=== PATIENT | male | born 1985 | race Caucasian/White ===

== ENCOUNTER 2017-06-26 14:02 | Emergency (ER) | payer BC ==
[2017-06-26] MEDS ORDERED: FAMOTIDINE INJ/PF 20 MG/2 ML SDV IV ONE (14:14)
[2017-06-26] MEDS ORDERED: METHYLPREDNISOLONE INJ 125 MG/2 ML SDV IV ONE (14:14)
[2017-06-26] MEDS ORDERED: EPINEPHRINE INJ/PF 1 MG/1 ML AMPULE SUBCUT ONE (14:14)
[2017-06-26] MEDS ORDERED: NORMAL SALINE 1000 ML 1,000 ML IV PRN (14:14)
[2017-06-26] MEDS ORDERED: DIPHENHYDRAMINE HCL 50 MG/ML VIAL IV ONE (14:14)
--- NOTE | 2017-06-26 14:16 | ER Document Report ---
ED Medical Screen (RME) - General Chief Complaint: Bee Sting Stated Complaint: POSSIBLE BEE STING Time Seen by Provider: 06/26/17 14:14 Mode of Arrival: Ambulatory Information source: Patient TRAVEL OUTSIDE OF THE [place] IN LAST 30 DAYS: No - HPI Patient complains to provider of: bee sting, allergic reaction Onset: Other - 1 hour T[facility] Notes: 06/26/17 14:15 Patient is a 31-year-old male presenting to the emergency room complaining of bee sting to the right forearm that occurred approximately 1 hour prior to arrival, he has erythematous and swelling to the right forearm, also has diffuse erythema and urticarial rash and swelling to the face upper with eyelid and lip swelling, sensation of chest and throat tightness, diffuse itchy sensation - Related Data Allergies/Adverse Reactions: No Known Allergies Allergy (Verified 06/26/17 14:07) Past Medical History Pulmonary Medical History: Reports: Hx Asthma - childhood Neurological Medical History: Reports: Hx Migraine Renal/ Medical History: Denies: Hx Peritoneal Dialysis Past Surgical History: Reports: Hx Inguinal Hernia - Immunizations Hx Diphtheria, Pertussis, Tetanus Vaccination: Yes Physical Exam - Vital signs Vitals: Temp Pulse Resp BP Pulse Ox 97.8 F 73 18 123/77 97 06/26/17 14:07 06/26/17 14:07 06/26/17 14:07 06/26/17 14:07 06/26/17 14:07 Course - Vital Signs Vital signs: Temp Pulse Resp BP Pulse Ox 97.8 F 73 18 123/77 97 06/26/17 14:07 06/26/17 14:07 06/26/17 14:07 06/26/17 14:07 06/26/17 14:07
[2017-06-26] MEDS ORDERED: MAG HYDROX/AL HYDROX/SIMETH SUSP 30 ML UDCUP PO ONE (15:12)
[2017-06-26] MEDS ORDERED: LIDOCAINE 2% VISCOUS SOLN 20 ML UDCUP PO ONE (15:12)
--- NOTE | 2017-06-26 15:14 | ER Document Report ---
ED Allergic Reaction - General Mode of Arrival: Ambulatory Information source: Patient TRAVEL OUTSIDE OF THE [place] IN LAST 30 DAYS: No - HPI Onset: Other - Refer to HPI Notes Identified cause: Yes - wasp sting Swelling: Lip(s) Similar symptoms previously: No Recently seen / treated by doctor: No - General Chief Complaint: Bee Sting Stated Complaint: POSSIBLE BEE STING Time Seen by Provider: 06/26/17 14:14 Notes: Patient is a 31 year old male presenting to the emergency department after being stung by a wasp. Patient states he was stung in his right forearm. Patient states right after he had some slight swelling to his arm and itchy sensations. Patient also states within 15 minutes he had facial swelling including eyelid and lip swelling, tightness in his chest and throat, urticaria , and a burning sensation all over including to his genitourinary region. Patient states he took a shower to try to help with his symptoms with no relief. Patient was given epinephrine in triage which relieved most of his symptoms. During exam patient only has some slight swelling to his right forearm no urticaria present. Patient also accounts of a time about 3 months ago where he was also stung by an unknown insect. During this time patient only experienced some swelling to his forearm where he got stung. Patient has no known drug allergies. (MARLEN KENDRICK) - Related Data Allergies/Adverse Reactions: No Known Allergies Allergy (Verified 06/26/17 14:07) Past Medical History - General Information source: Patient - Social History Smoking Status: Current Every Day Smoker Chew tobacco use (# tins/day): No Frequency of alcohol use: Occasional Drug Abuse: Marijuana Family History: CAD, DM, Hypertension, Malignancy Patient has suicidal ideation: No Patient has homicidal ideation: No Pulmonary Medical History: Reports: Hx Asthma - childhood Neurological Medical History: Reports: Hx Migraine Past Surgical History: Reports: Hx Inguinal Hernia - Immunizations Hx Diphtheria, Pertussis, Tetanus Vaccination: Yes Review of Systems - Review of Systems Constitutional: No symptoms reported EENT: See HPI, Other - throat tightness, eyelid swelling, lip swelling Cardiovascular: See HPI, Other - chest tightness Respiratory: No symptoms reported Gastrointestinal: No symptoms reported Genitourinary: No symptoms reported Male Genitourinary: No symptoms reported Musculoskeletal: No symptoms reported, Other Skin: See HPI, Other - swelling Hematologic/Lymphatic: No symptoms reported Neurological/Psychological: No symptoms reported -: Yes All other systems reviewed and negative Physical Exam - Vital signs Vitals: Temp Pulse Resp BP Pulse Ox 97.8 F 73 18 123/77 97 06/26/17 14:07 06/26/17 14:07 06/26/17 14:07 06/26/17 14:07 06/26/17 14:07 - Notes Notes: GENERAL: Alert, interacts well. No acute distress. HEAD: Normocephalic, atraumatic. EYES: Appear normal. Pupils equal, round, and reactive to light. ENT: Moist mucus membranes, tongue midline. No facial swelling. NECK: Full range of motion. Supple. Trachea midline. LUNGS: Clear to auscultation bilaterally, no wheezes, rales, or rhonchi. No respiratory distress. HEART: Regular rate and rhythm. No murmurs, gallops, or rubs. ABDOMEN: Soft, non-tender. Non-distended. Normal bowel sounds. EXTREMITIES: Moves all 4 extremities spontaneously. Normal strength. Some slight puffiness and swollen swelling to the right forearm. NEUROLOGICAL: Alert and oriented x3. Normal speech. No focal neurological deficits. GSC 15. PSYCH: Normal affect, normal mood. SKIN: Warm, dry, normal turgor. No rashes, urticaria or lesions noted. (MARLEN KENDRICK) Discharge - Discharge Clinical Impression: Allergic reaction to bee sting Disposition: HOME, SELF-CARE Additional Instructions: Insect Sting You've been stung by an insect. The venom can cause pain, redness, and swelling. Right after the sting, we sometimes use adrenaline to reduce the reaction to the venom. This also stops any allergic reaction. You should apply cold compresses, rest and elevate the affected part, and take antihistamines. A more severe, itchy red swelling sometimes develops the next day. This is a local allergic reaction to the venom. This local allergy isn't dangerous. We treat it with cortisone-type medicine and antihistamines. Sometimes we use antibiotics if we're worried about infection. If you develop a fever, chills, a red streak, or swollen glands in the area of the bite, infection may be starting. Return at once. Insect stings from the bee and hornet family may cause a severe allergic reaction. Symptoms include hoarseness, shortness of breath, general redness of the skin, general itching, or lightheadedness. If any of these symptoms occur, you'll be treated with adrenalin and cortisone-like steroids. You should carry an "Anaphylaxis Kit" with you in the summer months so you can administer these medications to yourself before getting emergency medical care. //////////////////////////////////////////////////////////////////////////////// //////////////////////////////////////////////////////////////////////////////// /////////////// CARRY BENADRYL AND PEPCID/ZANTAC/ OR TAGAMET WITH YOU ALL THE TIME. IF YOU ARE STUNG, TAKE 2 BENADRYL TABLETS AND 4 OF THE PEPCID/ZANTAC OR PEPCID. CARRY AN EPI-PEN WITH YOU ALL THE TIME. IF YOU BEGIN TO DEVELOP HIVES, ITCHING OR BREATHING TROUBLE, THEN USE THE EPI- PEN. CALL 911 IF YOU NEED TO USE THE EPI-PEN. TAKE BENADRYL EVERY 4 HOURS TODAY AND 2 PEPCID/ZANTAC OR TAGAMET EVERY 6 HOURS TODAY. RETURN TO THE EMERGENCY ROOM IF ANY NEW OR WORSENING SYMPTOMS. Prescriptions: Epinephrine [Epipen 2-Rodriguez] 0.3 mg IM PRN PRN #1 packet PRN Reason: Scribe Attestation: 06/26/17 15:49 I personally performed the services described in the documentation, reviewed and edited the documentation which was dictated to the scribe in my presence, and it accurately records my words and actions. (ANGELINA CARR) Scribe Documentation - Scribe Written by Poli:: Poli Oneil 06/26/2017 16:30 acting as scribe for :: Arcelia
[2017-06-26 16:08] VITALS: BP 110/40
== END 2017-06-26 16:08 | disposition home or self-care (01) ==
LOC: ER 14:02
DX: T63.441A Toxic effect of venom of bees, accidental (unintentional), initial encounter (principal); L50.9 Urticaria, unspecified; M79.89 Other specified soft tissue disorders; R22.0 Localized swelling, mass and lump, head; R07.89 Other chest pain; R09.89 Other specified symptoms and signs involving the circulatory and respiratory systems; R20.8 Other disturbances of skin sensation; F17.200 Nicotine dependence, unspecified, uncomplicated
CPT/HCPCS: 99282; 96372; 96361; 96374; 96375; J1200; J0171; J3490; J2930; J7030; S0028

== ENCOUNTER → 2020-11-08 | Outpatient (CLI) | payer BC ==
[2020-11-08 10:57] VITALS: BP 124/70
--- NOTE | 2020-11-08 10:57 | ER RDC ASSESSMENT REPORT ---
Intake - In the Last 14 days Have you traveled outside [place]?: No Have you been in close contact with someone CONFIRMED: Yes Worked in Healthcare?: No - Symptoms Subjective Fever([place] feverish): No Chills: No Muscule Aches: Yes Runny Nose: No Sore Throat: No Cough (New or worsening chronic cough): Yes Shortness of breath: Yes Nausea or Vomiting: No Headache: No Abdominal Pain: No Diarrhea(3 or more loose stools in last 24 hours): Yes - Do you have any of the following Chronic lung disease: Asthma or emphysema or COPD: Yes Chronic Lung Disease Comment: History of COPD Cystic Fibrosis: No Diabetes: No High Blood Pressure: No Cardiovascular Disease: No Chronic Kidney Disease: No Chronic Liver Disease: No Chronic blood disorder like Sickle Cell Disease: No Weak immune system due to disease or medication: No Neurologic condition that limits movement: No Developmental delay - Moderate to Severe: No Recent (within past 2 weeks) or current : No Morbid Obesity (>100 pounds over ideal weight): No Obesity Comment: Height 6 feet 1 inch weight 175 pounds - Objective Temperature: 97.8 F Pulse Rate: 66 Respiratory Rate: 16 Blood Pressure: 124/70 O2 Sat by Pulse Oximetry: 95 Objective: Given above, testing performed: If Testing Performed: Test Specimen Type Sent to General - General Information source: Patient Notes: Patient here at [facility] for Covid testing patient had been exposed to coworker who tested positive for Covid patient started to have symptoms last week around November 01 symptoms include cough shortness of breath muscle aches and diarrhea. Patient has a history of COPD smokes. Patient PCLP Dr Delgado and will follow up with him. - Related Data Allergies/Adverse Reactions: No Known Allergies Allergy (Verified 06/26/17 14:07) Past Medical History - General Information source: Patient - Social History Smoking Status: Current Every Day Smoker - A pack a day Smoking Education Provided: Yes - Quit smoking Family History: CAD, DM, Hypertension, Malignancy Pulmonary Medical History: Reports: Hx Asthma - childhood Neurological Medical History: Reports: Hx Migraine Renal/ Medical History: Denies: Hx Peritoneal Dialysis Past Surgical History: Reports: Hx Inguinal Hernia Physical Exam - General General appearance: Appears well, Alert In distress: None Notes: PHYSICAL EXAMINATION: GENERAL: Well-appearing and in no acute distress. HEAD: Atraumatic, normocephalic. EYES: sclera anicteric, conjunctiva are normal. ENT: nares patent. Moist mucous membranes. NECK: Normal range of motion, supple without lymphadenopathy LUNGS: CTAB and equal. No wheezes rales or rhonchi. Respirations even and unlabored lung sounds clear. HEART: Regular rate and rhythm without murmurs ABDOMEN: Soft, nontender, normal bowel sounds, no guarding. EXTREMITIES: Normal range of motion, no pitting edema. No cyanosis. NEUROLOGICAL: Cranial nerves grossly intact. Normal speech. Normal gait. PSYCH: Normal mood, normal affect. SKIN: Warm, Dry, normal turgor, no rashes or lesions noted Diagnostic Results Laboratory Results: Patient informed of negative rapid strep and negative rapid flu results. PEnding strep culture pending Covid testing results. Patient provided instructions regarding Covid to include: As a person under investigation for Covid 19, the [facility], division of public health advises you to adhere to the following guidance until your test results are reported to you. If your test result is positive, you will receive additional information from your provider and your local health department at that time. Remain at home until you are cleared by the health provider or public health authorities. Keep a log of visitors to your home, notify any visitors to your home of your isolation status. If you plan to move to a new address or leave the county, notify the local health department in your County. Call your doctor or seek care if you have an urgent medical need. Before seeking medical care, call ahead to get instructions from the provider before arriving at the medical office clinic or hospital. Notify them that you are being tested for the virus that causes Covid 19 so that arrangements can be made, as necessary, to prevent transmission to others in the healthcare setting. Next, notify the local health department in your county. If a medical emergency arises and you need to call 911, inform the first responders that you are being tested for the virus that causes Covid 19. Next, notify the local health department in your county. Patient Education/Counseling Counseling/Education: Patient presents with upper respiratory symptoms worrisome for possible Covid 19. Patient does not have emergency worring symptoms such as difficulty breathing, shortness of breath, chest pain, pressure, confusion or cyanosis. Patient appears suitable for discharge. Patient instructed to follow-up with PCP Dr. Wild. To ED for persistent or worsening symptoms. Patient's vital signs are stable and patient is nontoxic in appearance. Good return precautions have been discussed with patient, patient verbalized understanding and is agreeable with discharge plan of care at this time. RDC Discharge - Discharge Condition: Stable Disposition: Home; Selfcare
[2020-11-08 11:42] LABS: A TYPE INFLUENZA AG NEGATIVE (NEGATIVE); B INFLUENZA AG NEGATIVE (NEGATIVE)
== END ==
LOC: RDC 10:04
PROVIDERS: ATTEND Nurse Practitioner Family
DX: Z20.828 Contact with and (suspected) exposure to other viral communicable diseases (principal)
CPT/HCPCS: 87070; 87880; 87804; 99201 ×2; U0003; C9803; 87635